=== PATIENT | female | born 2000 ===

== ENCOUNTER 2021-01-11 09:17 | Inpatient (IN) | payer OTHER ==
--- NOTE | 2021-01-11 10:26 | History and Physical Report ---
History of Present Illness Date of examination: 01/11/21 Date of admission: 01/11/21 09:17 Chief complaint: HERE FOR REPEAT CSECTION AT TERM. History of present illness: The patient is a 20-year-old woman 2 para 1-0-0-1 last menstrual period 04/13/2020 EDC 01/18/2021. She did have 5 visits. Her OB problem list included anemia hemoglobin 11, group B strep positive, late care at 33weeks previous section. Her glucose tolerance test was abnormal but a 3-hour GTT was normal. At the office her blood type was O+ antibody screen was negative hemoglobin is 11 hematocrit 32.2% Pap smear was normal rubella was immune VDRL was nonreactive urine culture was negative HB SAG was negative her HIV test was negative. Her platelet count was 244,000. Gonorrhea and Chlamydia tests were negative trichomonas test was negative vitamin D was 23.2% she was taking vitamin D iron and vitamins and she did have terconazole vaginal cream while she was . Family medical history was negative past medical history included vitamin D deficiency last Pap smear 2020 was negative past surgery was a section. Menarche was age 8. This is her second . First was delivered by section in 2018 the baby weighed 8 pounds and 10 ounces. The patient is admitted today for repeat section. She gave consent for the repeat section. Past History Past Surgical History: section Family/Genetic History: none Social history: no significant social history - Obstetrical History : 2 Medications and Allergies Allergies Allergy/AdvReac Type Severity Reaction Status Date / Time No Known Allergies Allergy Verified 01/11/21 09:58 Home Medications Medication Instructions Recorded Confirmed Last Taken Type Ergocalciferol(Vitamin D2)(Nf) 400 unit PO 1XW 01/11/21 01/11/21 1 Week Ago History [Vitamin D (Nf)] ~01/04/21 Iron [Iron 18 MG TAB] 18 mg PO 01/11/21 01/10/21 History Vit-Fe Fumar-FA [ 1 tab PO QDAY 01/11/21 01/11/21 01/10/21 History Vitamin] Review of Systems All systems: negative - Vital Signs Vital signs: Vital Signs Pulse BP 93 H 112/69 01/11/21 10:03 01/11/21 10:03 Temp Pulse Resp BP Pulse Ox 93 H 112/69 01/11/21 10:03 01/11/21 10:03 - Physical Exam Breasts: Cardiovascular: Regular rate, Normal S1, Normal S2 Abdomen: Positive: normal appearance, soft, normal bowel sounds. Negative: distention, tenderness Genitourinary (Female): Positive: normal external genitalia Vulva: both: normal Vagina: Positive: normal moisture. Negative: discharge Cervix: Negative: lesion, discharge Uterus: Positive: normal size, normal contour Adnexa: both: normal Anus/Rectum: Positive: normal perianal skin, heme negative. Negative: rectal mass, hemorrhoids Extremities: Deep Tendon Reflex Grade: Normal +2 - Obstetrical FHR: auscultation normal, category 1 Uterine Contraction Pattern: Absent Uterine Tone Measurement Phase: Resting Results All other labs normal. Assessment and Plan 39-week intrauterine previous section x1. Plan repeat low transverse section. - Patient Problems (1) Anemia Current Visit: Yes Status: Acute Qualifiers: Anemia type: iron deficiency
[2021-01-11] MEDS: LACTATED RINGERS 1,000 ML IV SCH ×2 (10:43→11:09)
[2021-01-11] MEDS ORDERED: ONDANSETRON 4 MG/2 ML INJ ONE ×2 (10:49)
[2021-01-11] MEDS ORDERED: BUPIVACAINE/PF (0.5%) 5 MG/1 ML 30 ML VIAL INFILTRATI ONE (10:49)
[2021-01-11 10:51] LABS: Basophils % (Auto) 0.4 % (0.0-1.8); Eosinophils % (Auto) 0.6 % (0.0-4.3); Hematocrit 34.2 % (30.3-42.9); Hemoglobin 11.6 gm/dl (10.1-14.3); Lymphocytes # (Auto) 1.8 K/mm3 (1.2-5.4); Lymphocytes % (Auto) 25.2 % (13.4-35.0); Mean Corpuscular HGB Conc 34 % (30-34); Mean Corpuscular Volume 89 fl (79-97); Monocytes # (Auto) 0.5 K/mm3 (0.0-0.8); Monocytes % (Auto) 7.3 % (0.0-7.3); Platelet Count 179 K/mm3 (140-440); Red Blood Count 3.84 M/mm3 (3.65-5.03); Red Cell Distribution Width 14.4 % (13.2-15.2)
[2021-01-11] MEDS ORDERED: OXYTOCIN DRIP 30 UNITS/500 ML BAG IV SCH ×2 (11:00→14:00)
[2021-01-11] MEDS ORDERED: BICITRA ORAL LIQD 30ML PO ONE (11:00)
[2021-01-11] MEDS ORDERED: FAMOTIDINE 20 MG/2 ML INJ IV ONE (11:00)
[2021-01-11] MEDS ORDERED: METOCLOPRAMIDE 10 MG/2 ML INJ IV ONE (11:00)
[2021-01-11] MEDS ORDERED: ceFAZolin/Water 2 GM/20 ML 2 GM/20 ML SYRINGE IV NR (11:00)
--- NOTE | 2021-01-11 11:10 | Anesthesia Consultation ---
Anesthesia Consult and Med Hx Date of service: 01/11/21 - Airway Anesthetic Teeth Evaluation: Good ROM Head & Neck: Adequate Mental/Hyoid Distance: Adequate Mallampati Class: Class II Intubation Access Assessment: Probably Good - Pulmonary Exam CTA: Yes - Cardiac Exam Cardiac Exam: RRR - Pre-Operative Health Status ASA Pre-Surgery Classification: ASA2 Proposed Anesthetic Plan: Spinal - Pulmonary Hx Asthma: No - Cardiovascular System Hx Hypertension: No - Central Nervous System Hx Seizures: No Hx Psychiatric Problems: No - Endocrine Hx Renal Disease: No Hx Hypothyroidism: No Hx Hyperthyroidism: No - Hematic Hx Anemia: Yes Hx Sickle Cell Disease: No - Other Systems Hx Alcohol Use: No
[2021-01-11] MEDS ORDERED: dexAMETHasone 20 MG/5 ML VIAL ONE (11:52)
[2021-01-11] MEDS ORDERED: ceFAZolin/STERILE WATER 2 GM/20 ML SYRINGE IV ONE (12:10)
--- NOTE | 2021-01-11 12:19 | Progress Note ---
Spinal Anesthesia Block - Spinal Anesthesia Block Start Time: 12:10 Stop Time: 12:15 Performed by:: RISSA QUAN Procedure: Sitting, sterile betadine prep/drape, 1% lidocaine skin local, 25G spinal needle + introducer at L3-4, + CSF, - Heme, [1.6 ml 0.5% bupivacaine + 5 mcg dexmedetomidine] injected, drape removed, patient positioned supine with left uterine displacement, and spinal level verified to be adequate prior to surgery. Remington ARANDA
[2021-01-11] MEDS ORDERED: ePHEDrine SULFATE 50 MG/1 ML INJ ONE (13:11)
[2021-01-11] MEDS ORDERED: KETOROLAC 30 MG/1 ML INJ ONE (13:20)
[2021-01-11] MEDS ORDERED: LACTATED RINGERS 1,000 ML ONE (13:23)
[2021-01-11] MEDS ORDERED: LANOLIN/ZINC/DIMETHICONE (LANSINOH) 7 GM TP PRN (13:32)
[2021-01-11] MEDS ORDERED: MORPHINE 4 MG/1 ML INJ IV PRN (13:32)
[2021-01-11] MEDS ORDERED: ONDANSETRON 4 MG/2 ML INJ IV PRN (13:32)
[2021-01-11] MEDS ORDERED: NALOXONE 0.4 MG/1 ML INJ IV PRN (13:32)
[2021-01-11] MEDS ORDERED: WITCH HAZEL/ GLYCERIN PAD TP PRN (13:32)
--- NOTE | 2021-01-11 13:46 | Procedure Note ---
Date of procedure: 01/11/21 Pre-op diagnosis: 39 wks iup, previous c section, anemia, late care Post-op diagnosis: same Procedure: The patient was made ready to on going a 6 repeat low transverse section. Indications for the section patient was 39 weeks and had a previous section. She had a liveborn male weighing 8 pounds 3 ounces Apgars 8 and 8 her estimated blood loss was 900 cc IV fluids was 2 L urine output was 500 cc. Her anesthesia was spinal drains Gonzalez The patient was taken to the OR and made ready for the section she was given a spinal anesthetic she had an indwelling Gonzalez catheter already in place we then prepped and draped in usual manner. A Pfannenstiel incision was created through the previous Pfannenstiel incision we entered the abdominal cavity anatomically. Vesicouterine peritoneum was opened transversely with Metzenbaums bladder was sharply dissected off the lower uterine segment. Because of the tightness of her incision we had to open her rectus muscle on the left side to allow space to deliver the baby subsequently we open the anterior uterine cavity with a scalpel and fetus in vertex presentation occiput anterior was delivered without incident oropharynx was suction the cord was doubly clamped baby was handed off to the nurses from the nursery in stable condition. The uterine incision was clean the uterine cavity was cleaned of debris membranes and tissue uterine incision was repaired in 2 layers with running locking #0 chromic this uterine peritoneum was repaired running 2-0 chromic on a GI needle. Tubes and ovaries appeared to be normal. Gutters were cleaned of de bris membranes suction for blood and tissue uterus was brought back into the abdominal cavity. The anterior peritoneum was closed with running 2-0 chromic. The rectus muscle down to been previously cut was repaired with transfixion sutures of #0 chromic. The fascia was closed with running locking 0 Vicryl subcutaneous tissue were closed with running 2-0 plain skin was repaired with a running subcuticular 4-0 Vicryl on a Markus needle and drained with a Dermabond patient tolerated procedure well she was then returned to recovery room in stable condition end of operative note on [place]. Anesthesia: spinal Surgeon: EUGENIO GRIMES Estimated blood loss: other (900) IV fluids: 2,000 Urine output: 500 Pathology: none Specimen disposition: discarded Condition: stable Disposition: PACU
[2021-01-11] MEDS: HYDROcodone/ACETAMINOPHEN 5-325 MG TAB PO PRN (23:26)
[2021-01-12 01:55] LABS: Hemoglobin 8.6 gm/dl (10.1-14.3)
--- NOTE | 2021-01-12 12:42 | Progress Note ---
Assessment and Plan A: /postop day 1 S/P repeat LTCS. Anemia. P: Iron supplementation. Encouraged ambulation. Continue routine /postop care. Subjective - Subjective Date of service: 01/12/21 Principal diagnosis: day 1 S/P repeat LTCS Interval history: Doing well. Patient reports: appetite normal, voiding normally, pain well controlled, flatus, ambulating normally, no dizzy ambulation, no nauseated : doing well Objective - Vital Signs Latest vital signs: Vital Signs Temp Pulse Resp BP BP Pulse Ox 01/12/21 08:04 97.8 F 83 18 114/68 01/12/21 01:16 98.6 F 69 16 105/66 01/11/21 23:26 18 01/11/21 20:23 98.0 F 106 H 18 115/70 99 01/11/21 15:30 98.5 F 83 18 98/53 01/11/21 14:45 101 H 17 103/57 97 01/11/21 14:30 105 H 18 94/54 98 01/11/21 14:15 88 16 130/51 97 01/11/21 14:00 63 16 138/84 98 01/11/21 13:55 65 12 148/88 98 01/11/21 13:50 74 17 124/61 98 01/11/21 13:45 99 H 17 119/56 97 01/11/21 13:43 96.8 F L 100 H 12 114/64 98 Intake and Output 01/11/21 01/12/21 01/12/21 23:59 07:59 15:59 Intake Total 120 Output Total 1500 Balance -1380 Intake: Oral 120 Output: Urine 1500 Indwelling Catheter 1500 Other: Total, Intake Amount 120 Total, Output Amount 1500 # Bowel Movements 0 - Exam Cardiovascular: Present: Regular rate Lungs: Present: Clear to auscultation Abdomen: Present: normal appearance, soft, normal bowel sounds. Absent: distention, tenderness, guarding, rigidity Uterus: Present: normal, firm, fundal height below umbilicus. Absent: bogginess, tenderness Extremities: Present: normal. Absent: tenderness, edema Incision: Present: normal, dry, intact - Labs Labs: Abnormal lab results 01/12/21 Range/Units 01:35 Hgb 8.6 L D (10.1-14.3) gm/dl Hct 25.0 L D (30.3-42.9) %
--- NOTE | 2021-01-12 15:08 | Post Anesthesia Evaluation ---
- Post Anesthesia Evaluation Patient Participated: Yes Airway Patent: Yes Stable Respiratory Function: Yes Nausea/Vomiting: No Temp > 96.8F: Yes Pain Manageable: Yes Adequeate Hydration: Yes Anesthesia Complications: No Block Receding Appropriately: Yes
[2021-01-12] MEDS: HYDROcodone/ACETAMINOPHEN 5-325 MG TAB PO PRN ×2 (15:45→23:46)
[2021-01-12] MEDS: PRENATAL VIT27-FE FUMARATE-FOLIC ACID VIT TAB PO SCH (15:47)
[2021-01-12] MEDS: FERROUS SULFATE 325 MG TAB PO SCH (21:40)
[2021-01-13] MEDS: HYDROcodone/ACETAMINOPHEN 5-325 MG TAB PO PRN ×3 (05:45→18:11)
--- NOTE | 2021-01-13 06:58 | Progress Note ---
Assessment and Plan A: /postop day 2 S/P repeat LTCS. Anemia. P: Continue ambulation. Continue oral iron supplementation. Anticipate discharge home tomorrow. Subjective - Subjective Date of service: 01/13/21 Principal diagnosis: day 2 S/P repeat LTCS Interval history: Doing well. Patient reports: appetite normal, voiding normally, pain well controlled, flatus, ambulating normally, no dizzy ambulation, no nauseated : doing well Objective - Vital Signs Latest vital signs: Vital Signs Temp Pulse Resp BP 01/13/21 05:45 01/13/21 00:00 98 F 74 18 104/72 01/12/21 23:46 20 01/12/21 08:04 97.8 F 83 18 114/68 Intake and Output 01/12/21 01/12/21 01/13/21 15:59 23:59 07:59 Intake Total 200 Balance 200 Intake: Oral 200 Other: Total, Intake Amount 200 - Exam Cardiovascular: Present: Regular rate Lungs: Present: Clear to auscultation Abdomen: Present: normal appearance, soft, normal bowel sounds. Absent: distention, tenderness, guarding, rigidity Uterus: Present: normal, firm, fundal height below umbilicus. Absent: bogginess, tenderness Extremities: Present: normal. Absent: tenderness, edema Incision: Present: normal, dry, intact
[2021-01-13] MEDS: FERROUS SULFATE 325 MG TAB PO SCH (11:23)
[2021-01-13] MEDS: PRENATAL VIT27-FE FUMARATE-FOLIC ACID VIT TAB PO SCH (11:23)
[2021-01-13] MEDS ORDERED: MAGNESIUM HYDROXIDE (MOM) ORAL LIQD UDC PO PRN (20:22)
[2021-01-14] MEDS: HYDROcodone/ACETAMINOPHEN 5-325 MG TAB PO PRN (09:15)
[2021-01-14] MEDS: PRENATAL VIT27-FE FUMARATE-FOLIC ACID VIT TAB PO SCH (09:37)
[2021-01-14] MEDS: FERROUS SULFATE 325 MG TAB PO SCH (09:37)
--- NOTE | 2021-01-14 11:17 | Progress Note ---
Assessment and Plan A: day 3 S/P repeat LTCS. Anemia. P: Discharge patient home today. Discussed with patient /postop discharge instructions and warning signs. Care of incision and activity restrictions discussed with patient. Advised patient to avoid intercourse, lifting, housework, tub baths (patient may take showers). Advised patient to continue taking her vitamin and iron supplement at home. Advised patient to follow up at [facility] in 1 week. Patient voiced understanding of all instructions. Subjective - Subjective Date of service: 01/14/21 Principal diagnosis: day 3 S/P repeat LTCS Interval history: day 3 S/P repeat LTCS. Patient reports: appetite normal, voiding normally, pain well controlled, flatus, ambulating normally, no dizzy ambulation, no nauseated [place]: doing well, nursing well Objective - Vital Signs Latest vital signs: Vital Signs Temp Pulse Resp BP Pulse Ox 01/13/21 16:51 97.5 F L 89 18 109/65 96 Intake and Output 01/13/21 01/14/21 01/14/21 23:59 07:59 15:59 Intake Total 240 600 Balance 240 600 Intake: Oral 240 Intake, Free Water 240 360 Other: Total, Intake Amount 240 # Voids Indwelling Catheter 2 Void 1 2 - Exam Cardiovascular: Present: Regular rate Lungs: Present: Clear to auscultation Abdomen: Present: normal appearance, soft, normal bowel sounds. Absent: distention, tenderness, guarding, rigidity Uterus: Present: normal, firm, fundal height below umbilicus. Absent: bogginess, tenderness Extremities: Present: normal. Absent: tenderness, edema Incision: Present: normal, dry, intact
--- NOTE | 2021-01-14 11:20 | Discharge Summary ---
Providers - Providers Date of Admission: 01/11/21 09:17 Date of discharge: 01/14/21 Attending physician: EUGENIO GRIMES MD Primary care physician: EUGENIO GRIMES MD Hospitalization Reason for admission: section Delivery: Procedure: repeat low transverse Incision: normal, dry, intact Other procedures: none complications: none Discharge diagnosis: IUP at term delivered baby: male Pertinent studies: labs Hospital course: Uncomplicated hospital course. Condition at discharge: Good Disposition: DC-01 TO HOME OR SELFCARE - Discharge Diagnoses (1) Term delivered Status: Acute (2) Anemia Status: Acute Qualifiers: Anemia type: iron deficiency Plan - Discharge Medications Prescriptions: Ibuprofen [Motrin] 600 mg PO Q8H PRN #60 tablet PRN Reason: Pain oxyCODONE /ACETAMINOPHEN [Percocet 5/325] 1 tab PO Q6HR PRN #20 tablet PRN Reason: Pain - Provider Discharge Summary Activity: routine, no sex for 6 weeks, no heavy lifting 4 weeks, no strenuous exercise Diet: routine Instructions: routine Additional instructions: Continue taking your vitamin and iron supplements at home. Follow up at [facility] in 1 week. Call your doctor immediately for: * Fever > 100.5 * Heavy vaginal bleeding ( >1 pad per hour) * Severe persistent headache * Shortness of breath * Reddened, hot, painful area to leg or breast * Drainage or odor from incision. * Keep incision clean and dry at all times and follow doctor's instructions regarding bathing/showering - Follow up plan Follow up: EUGENIO GRIMES MD [Primary Care Provider] - 7 Days
[2021-01-14 13:30] VITALS: BP 104/58
== END 2021-01-14 12:45 | disposition home or self-care (01) | DRG 765 ==
LOC: APU 09:17 → OB 15:13
PROC: 10D00Z1 Extraction of Products of Conception, Low, Open Approach (ICD-10-PCS; principal; 2021-01-11)
PROC: 3E0R3BZ Introduction of Anesthetic Agent into Spinal Canal, Percutaneous Approach (ICD-10-PCS; 2021-01-11)
DX: O34.211 Maternal care for low transverse scar from previous cesarean delivery (principal); D62 Acute posthemorrhagic anemia; Z3A.39 39 weeks gestation of pregnancy; Z37.0 Single live birth; O99.02 Anemia complicating childbirth; Z20.822 Contact with and (suspected) exposure to COVID-19
CPT/HCPCS: 36415; 59025; 85014; 85018; 85025; 86850; 86900; 86901; 96360; 96374; 99211; G0378; G0463; J0690; J1100; J1885; J2405; J2765; J3490; J7120; U0003